=== PATIENT | male | born 1985 ===

== ENCOUNTER 2018-06-30 16:58 | Emergency (ER) | payer OTHER ==
[2018-06-30 17:06] VITALS: BP 137/86; PULSE 102; RESP 20; TEMP 99; O2SAT 98
[2018-06-30] MEDS ORDERED: Dexamethasone 4 mg/1 ml IM STA (17:19)
[2018-06-30] MEDS ORDERED: Dexamethasone 4 mg/1 ml ONE (17:29)
--- NOTE | 2018-06-30 17:49 | C.PDOC ---
History Of Present Illness Patient is a 33 year old male who presents to the ED for left shoulder pain for the past week that is worse with movement. Patient states that he was seen at another hospital where he was given Naproxen without relief. He denies any injury, numbness, weakness, CP, SOB, or rash. Time Seen by Provider: 06/30/18 17:08 Chief Complaint (Nursing): Upper Extremity Problem/Injury History Per: Patient History/Exam Limitations: no limitations Onset/Duration Of Symptoms: Days (one week) Current Symptoms Are (Timing): Still Present Quality: "Pain" Recent travel outside of the [place]: No Additional History Per: Patient Past Medical History Reviewed: Historical Data, Nursing Documentation, Vital Signs Vital Signs: Last Vital Signs Temp 99 F 06/30/18 17:01 Pulse 102 H 06/30/18 17:01 Resp 20 06/30/18 17:01 BP 137/86 06/30/18 17:01 Pulse Ox 98 06/30/18 17:01 - Medical History PMH: No Chronic Diseases Surgical History: No Surg Hx Family History: States: No Known Family Hx - Social History Hx Alcohol Use: Yes Hx Substance Use: Yes - Immunization History Hx Tetanus Toxoid Vaccination: No Hx Influenza Vaccination: No Hx Pneumococcal Vaccination: No Review Of Systems Cardiovascular: Negative for: Chest Pain Respiratory: Negative for: Shortness of Breath Musculoskeletal: Positive for: Shoulder Pain (left ) Skin: Negative for: Rash Neurological: Negative for: Weakness (left shoulder), Numbness (left shoulder) Physical Exam - Physical Exam Appears: Non-toxic, No Acute Distress Skin: Normal Color, Warm, Dry, No Rash Head: Atraumatic, Normacephalic Eye(s): bilateral: Normal Inspection Oral Mucosa: Moist Neck: Normal ROM, Supple Chest: Symmetrical, No Tenderness Cardiovascular: Rhythm Regular, No Friction Rub, No Murmur Respiratory: Normal Breath Sounds, No Wheezing Gastrointestinal/Abdominal: Soft, No Tenderness Back: Normal Inspection, No CVA Tenderness, No Vertebral Tenderness, No Paraspinal Tenderness Extremity: Tenderness (tenderness to lateral left shoulder with abduction past 90 degrees), No Swelling Pulses: Left Brachial: Normal, Right Brachial: Normal, Left Radial: Normal, Right Radial: Normal Neurological/Psych: Oriented x3, Normal Speech, Normal Cognition, Normal Motor, Normal Sensation Gait: Steady ED Course And Treatment O2 Sat by Pulse Oximetry: 98 (on RA) Pulse Ox Interpretation: Normal Medical Decision Making Medical Decision Making: Plan: Decadron 10mg IM Toradol 30mg IM Disposition - Disposition Referrals: Laura May MD [Staff Provider] - Carri Gutierrez MD [Staff Provider] - Disposition: HOME/ ROUTINE Disposition Time: 18:20 Condition: GOOD Additional Instructions: This could be a possible shoulder tear or tendonitis. Follow up with the Orthopedist within 1-2 days. Return if worsened. Prescriptions: Acetaminophen [Tylenol] 325 mg PO Q6 PRN #30 tab PRN Reason: Pain, Mild (1-3) Diazepam [Valium] 2 mg PO TID #21 tab Instructions: Shoulder Tendinopathy (DC) Forms: [employer] (Czech), Work Excuse - Clinical Impression Clinical Impression: Shoulder tendonitis - PA / [employer] / Resident Statement MD/DO has examined the patient and agrees with the treatment plan. - Scribe Statement The provider has reviewed the documentation as recorded by the Jay Martinez All medical record entries made by the Scribe were at my direction and personally dictated by me. I have reviewed the chart and agree that the record accurately reflects my personal performance of the history, physical exam, medical decision making, and the department course for this patient. I have also personally directed, reviewed, and agree with the discharge instructions and disposition.
== END 2018-06-30 18:33 | disposition home or self-care (01) ==
LOC: C.ER 16:58
DX: M75.92 Shoulder lesion, unspecified, left shoulder (principal)
CPT/HCPCS: 96372; 99284; J1100; J1885